=== PATIENT | female | born 1995 | race Caucasian/White ===

== ENCOUNTER 2016-07-14 23:43 | Emergency (ER) | payer BC ==
--- NOTE | ~2016-07-14 | ER ---
PATIENT'S NAME: INOCENCIA [facility] AGE: 21 Y [address] ROOM: [place] [address] LOCATION: [facility] ADMIT DATE: 07/14/2016 ER/Outpatient Report DISCHARGE DATE: 07/15/2016 FAMILY PHYSICIAN: PHYSICIAN, NO ATTENDING PHYSICIAN: Chele Blevins TIME OF ARRIVAL: 2343 hours. TIME OF EVALUATION: 2354 hours. CHIEF COMPLAINT: Left upper quadrant abdominal pain. HISTORY OF PRESENT ILLNESS: The patient is a 21-year-old female who presents to the emergency department today with a chief complaint of left upper quadrant abdominal pain. She reports this started 30 minutes prior to arrival. She denies any fevers or chills. Does report some nausea. No vomiting. No diarrhea. Does have constipation with last bowel movement at 1 p.m. Denies any urinary frequency, urgency, or frequent urination. Denies any vaginal bleeding or vaginal discharge. It is a sharp type pain, currently 8/10 in severity, in left upper quadrant. PAST MEDICAL HISTORY: None. PAST SURGICAL HISTORY: Steph. SOCIAL HISTORY: The patient denies any tobacco, alcohol, or illicit drug use. ALLERGIES: NO KNOWN DRUG ALLERGIES. MEDICATIONS: None. REVIEW OF SYSTEMS: All systems are reviewed by myself are negative with the exception of those discussed in HPI and past medical history. PHYSICAL EXAMINATION: PATIENT'S NAME: DENNY PROH April [facility] AGE: 21 Y [address] ROOM: [place] [address] LOCATION: [facility] ADMIT DATE: 07/14/2016 ER/Outpatient Report DISCHARGE DATE: 07/15/2016 FAMILY PHYSICIAN: PHYSICIAN, NO ATTENDING PHYSICIAN: Chele Blevins VITAL SIGNS: Weight 83.6 kg. Blood pressure 123/83, pulse 112, respiratory rate 20, temperature 98.6, and oxygen saturation 96% on room air. GENERAL: The patient is a 21-year-old female, appears stated age, in acute discomfort, secondary to abdominal pain. HEENT: Normocephalic, atraumatic. Mucous membranes moist. NECK: Supple. There is no nuchal rigidity. CARDIOVASCULAR: Tachycardic. No murmurs, rubs, or gallops. LUNGS: Clear to auscultation bilaterally. No wheezes, rales, or rhonchi. ABDOMEN: Soft with moderate tenderness to palpation in the left upper quadrant and left lower quadrant. There is no rebound, rigidity, or guarding. Positive bowel sounds. MUSCULOSKELETAL: The patient moves all 4 extremities. SKIN: Warm and dry. There are no rashes or lesions noted. LABS AND X-RAYS: Procalcitonin is less than 0.05. Urinalysis is negative. CMP is unremarkable except for chloride 113, CO2 of 20. LFTs normal. Lipase is normal. Serum hCG is less than 1.0. CBC is normal. Coags are normal. Lactate is normal. CT scan of the abdomen and pelvis obtained shows no acute process. There is proximal small bowel with mild prominence suspicious for enteritis and there is also a tiny cholelithiasis noted. IMPRESSION: 1. Enteritis. 2. Cholelithiasis without cholecystitis. 3. Acute nonsurgical left upper quadrant abdominal pain. 4. Initial visit. EMERGENCY DEPARTMENT COURSE: The patient brought back to the examination room. Seen and evaluated by myself. IV is established. Laboratory analysis and imaging are obtained as described above. The patient is given a liter of normal saline, a 4 mg of Zofran, 5 mg of morphine, as well as 30 mg of Toradol with significant improvement in the patient's symptoms. I have discussed results with the patient. I have reexamined the patient's abdominal exam. She has a nonsurgical abdominal exam and actually is significantly improved at this time. I have discussed I would like her to follow up with primary care doctor in 2 days for reevaluation. I have written a prescription for Zofran for home. I have discussed [id number] instructions including worsening symptoms or any other concerns to return to the emergency department as soon as possible. The patient is agreeable without further questions at this time. DISPOSITION: The patient is discharged to home in good condition. PATIENT'S NAME: JORGE PRO [facility] AGE: 21 Y [address] ROOM: [place], [place] [address] LOCATION: [facility] ADMIT DATE: 07/14/2016 ER/Outpatient Report DISCHARGE DATE: 07/15/2016 FAMILY PHYSICIAN: PHYSICIAN, NO ATTENDING PHYSICIAN: Chele Blevins DO JACQUE FERRARI/tigrel /[id number] d: 07/15/16 2359 t: 07/16/16 0233, OUTPATIENT REPORT
[~2016-07-14 23:43] MED LIST: NORCO 5-325 MG1 TAB PO
[2016-07-15 00:15] LABS: BASOPHIL # 0.1 K/uL (0.0-0.2); BASOPHIL % 0.9 %; EOSINOPHIL # 0.3 K/uL (0.0-0.5); EOSINOPHIL % 4.1 %; HEMATOCRIT 40.6 % (33.0-46.0); HEMOGLOBIN 14.4 g/dL (11.0-15.0); IMMATURE GRANULOCYTE % 0.1 %; LYMPHOCYTE # 4.6 K/uL (0.8-4.0); LYMPHOCYTE % 56.2 %; MCH 30.7 pg (27.0-34.0); MCHC 35.5 gm/dL (32.0-36.5); MCV 86.6 fl (83.0-98.0); MONOCYTE # 0.6 K/uL (0.0-1.0); MPV 9.4 fl (9.4-12.4); NEUTROPHIL # (ANC) 2.6 K/uL (1.8-7.8); NEUTROPHIL % 31.7 %; NRBC % 0 /100WBC (0-0.00); PLATELET COUNT 235 K/uL (150-450); RBC 4.69 M/uL (3.50-5.00); RDW-CV 11.8 % (11.9-14.6); WBC 8.1 K/uL (4.0-11.0)
[2016-07-15 00:25] LABS: PROTIME 9.4 SECONDS (9.8-11.4); PTT 27 SECONDS (25-32)
[2016-07-15 00:29] LABS: BILIRUBIN URINE NEGATIVE (NEGATIVE); BLOOD URINE NEGATIVE /UL (NEGATIVE); COLOR URINE YELLOW (YELLOW); GLUCOSE URINE NEGATIVE (NEGATIVE); KETONE URINE NEGATIVE (NEGATIVE); LEUKOCYTES URINE NEGATIVE /UL (NEGATIVE); NITRITE URINE NEGATIVE (NEGATIVE); PROTEIN URINE NEGATIVE (NEGATIVE); TURBIDITY URINE CLEAR (CLEAR); UROBILINOGEN URINE NORMAL (NORMAL)
[2016-07-15 00:45] LABS: ALBUMIN 3.7 gm/dL (3.5-5.0); ALK PHOS 75 IU/L (33-138); ALT 18 IU/L (12-78); ANION GAP 14.9 (10.0-19.0); AST 16 IU/L (10-40); BLOOD UREA NITROGEN 13 mg/dL (6-24); CALCIUM 8.7 mg/dL (8.5-10.5); CHLORIDE 113 mMol/L (96-110); CO2 20 mMol/L (22-32); CREATININE 0.7 mg/dL (0.5-1.1); ESTIMATED GFR (MDRD EQUATION) > 60; POTASSIUM 3.9 mMol/L (3.7-5.1); SODIUM 144 mMol/L (135-145); TOTAL BILIRUBIN 0.2 mg/dL (0.0-1.5); TOTAL PROTEIN 7.3 g/dL (6.0-8.4)
== END 2016-07-15 01:42 | disposition disaster alternative care site (69) ==
LOC: GMED 23:43
PROVIDERS: Emergency Medicine
DX: K80.20 Calculus of gallbladder without cholecystitis without obstruction (principal); K52.9 Noninfective gastroenteritis and colitis, unspecified; Z98.890 Other specified postprocedural states
CPT/HCPCS: J1885; J2270; J2405; J7030; Q9967